=== PATIENT | female | born 1945 | race Caucasian/White ===

== ENCOUNTER 2016-11-06 05:30 | Emergency (ER) | payer MEDICARE ==
--- NOTE | 2016-11-06 08:18 | RAD ---
PELVIS ONE VIEW 11/06/2016 FINDINGS: No gross pelvic fractures were identified. Gas and fecal material partially obscure the sacrum and SI joint region. The pubic rings appear intact, and the symphysis appears normal. The hips appear intact, and the hip joints are normal in width. There is probably some disk space narrowing at the L4-L5 level. IMPRESSION: 1. No acute bony findings. 2. Mild constipation. POS: HOME
--- NOTE | 2016-11-06 08:21 | RAD ---
PORTABLE CHEST: 11/06/2016 0608 HOURS COMPARISON: No prior films are available for comparison. FINDINGS: This portable study at 0608 hours shows mild cardiomegaly. There is no gross congestion or edema. It is a little difficult to assess the left lung base, but it is probably clear. If respiratory sym ptoms existed, then a follow-up PA and lateral view would be helpful. IMPRESSION: Mild cardiomegaly with no definite acute findings. Consider follow-up chest x-ray if respiratory symptoms intervene. POS: HOME
== END 2016-11-06 06:30 | disposition home or self-care (01) ==
LOC: BURERS 05:30
DX: Z04.3 Encounter for examination and observation following other accident (principal); G30.9 Alzheimer's disease, unspecified; E78.00 Pure hypercholesterolemia, unspecified; Z79.899 Other long term (current) drug therapy
CPT/HCPCS: 71010; 72170